=== PATIENT | female | born 1995 | race Caucasian/White ===

== ENCOUNTER 2019-08-21 08:13 | Emergency (ER) | payer OTHER ==
[~2019-08-21] VITALS: Ht 170.2 cm; Wt 81.6 kg
--- NOTE | 2019-08-21 08:17 | NUR ---
PT AMBULATED TO ER BED 02
[2019-08-21 08:21] VITALS: BP 136/71
--- NOTE | 2019-08-21 08:30 | NUR ---
PT C/O LEFT FLANK PAIN X 3 DAYS 12/17 ACCOMPANIED BY BLOOD SPOT X 1 DAY . PT AWAKE ,ALERT , AFEBRILE , AMBULATORY WITH STEADY GAIT. SCE ,CBS, NOT IN DISTRESS.DENIES N/V,EPISODES OF DIARRHEA NO CONSULT NOR MEDS TAKEN. DENIES PREVIOUS MEDICAL HISTORY AND MEDS TAKE.
--- NOTE | 2019-08-21 08:50 | NUR ---
DR SEGUNDO AT BEDSIDE EVALUATING PT.
[2019-08-21 09:54] LABS: BASOPHILS % (AUTO) 0.2 % (0.0-2.0); EOSINOPHILS # (AUTO) 0.2 K/uL (0-0.4); EOSINOPHILS % (AUTO) 1.7 % (0.0-4.0); HEMATOCRIT 35.3 % (36-48); HEMOGLOBIN 11.2 g/dL (12.0-16.0); LYMPHOCYTES # (AUTO) 2.2 K/uL (2.5-16.5); LYMPHOCYTES % (AUTO) 23.6 % (20.5-51.1); MEAN CORPUSCULAR HEMOGLOBIN 25 pg (27-31); MEAN CORPUSCULAR HGB CONC 32 g/dL (33-37); MEAN CORPUSCULAR VOLUME 78.1 fL (80-94); MONOCYTES # (AUTO) 0.8 K/uL (0.8-1.0); MONOCYTES % (AUTO) 8.3 % (1.7-9.3); NEUTROPHILS # (AUTO) 6.1 K/uL (1.8-7.7); NEUTROPHILS % (AUTO) 66.2 % (42.2-75.2); PLATELET COUNT (AUTO) 213 K/uL (140-450); RED BLOOD CELL COUNT(AUTO) 4.52 MIL/uL (4.20-5.40); RED CELL DISTRIBUTION WIDTH 17.1 % (11.6-13.7); WHITE BLOOD COUNT (AUTO) 9.3 K/uL (4.8-10.8)
[2019-08-21 09:58] LABS: APPEARANCE,URINE HAZY (CLEAR); BILIRUBIN,URINE NEGATIVE (NEGATIVE); BLOOD, URINE 3+ (NEGATIVE); COLOR,URINE YELLOW (YELLOW); LEUKOCYTE ESTERASE ,URINE 2+ (NEGATIVE); NITRITE, URINE NEGATIVE (NEGATIVE); UGLUCOSE NEGATIVE (NEGATIVE)
[2019-08-21 10:07] LABS: ANION GAP 11.3 (8-16); CARBON DIOXIDE 27.5 mmol/L (21-32); CREATININE 0.6 mg/dL (0.6-1.3); POTASSIUM 3.8 mmol/L (3.5-5.1)
--- NOTE | 2019-08-21 11:30 | NUR ---
Patient discharged with v/s stable. Written and verbal after care instructions given and explained regarding uti. Patient alert, oriented and verbalized understanding of instructions. Ambulatory with steady gait. All questions addressed prior to discharge. ID band removed. Patient advised to follow up with PMD. Rx of macrobid given. Patient educated on indication of medication including possible reaction and side effects. Opportunity to ask questions provided and answered.
[2019-08-21 11:33] VITALS: BP 136/71
== END 2019-08-21 11:30 | disposition home or self-care (01) ==
LOC: MED 08:13
DX: O23.41 Unspecified infection of urinary tract in pregnancy, first trimester (principal); F17.200 Nicotine dependence, unspecified, uncomplicated; Z3A.01 Less than 8 weeks gestation of pregnancy
CPT/HCPCS: 36415; 76801; 80048; 81001; 81025; 84702; 85025; 86900; 86901; 87086; 99284; Q0092

== ENCOUNTER 2021-09-10 17:59 | Emergency (ER) | payer OTHER ==
[~2021-09-10] VITALS: Ht 167.6 cm; Wt 94.8 kg
[2021-09-10 18:09] VITALS: BP 133/91
--- NOTE | 2021-09-10 18:11 | NUR ---
pt placed in bed 07 at this time
[2021-09-10] MEDS ORDERED: ACET-10509 PO (18:59)
[2021-09-10] MEDS ORDERED: LOPE-289 PO (18:59)
[2021-09-10] MEDS ORDERED: IBUP-2213 PO (18:59)
--- NOTE | 2021-09-10 19:13 | NUR ---
pt swabbed for covid novel at this time, sent to lab
--- NOTE | 2021-09-10 19:19 | NUR ---
Patient discharged with v/s stable. Written and verbal after care instructions given and explained. Patient alert, oriented and verbalized understanding of instructions. Ambulatory with grandma to car. All questions addressed prior to discharge. ID band removed. Patient advised to follow up with PMD. Rx of motrin, tylenol, imodium (sent) given. Patient educated on indication of medication including possible reaction and side effects. Opportunity to ask questions provided and answered. work note given
[2021-09-10 19:21] VITALS: BP 133/91
== END 2021-09-10 19:19 | disposition home or self-care (01) ==
LOC: MED 17:59
DX: M79.10 Myalgia, unspecified site (principal); R19.7 Diarrhea, unspecified; R63.0 Anorexia; R42 Dizziness and giddiness; Z20.822 Contact with and (suspected) exposure to COVID-19
CPT/HCPCS: 99283; U0003

== ENCOUNTER 2021-10-24 10:49 | Emergency (ER) | payer OTHER ==
[~2021-10-24] VITALS: Ht 170.2 cm; Wt 96.6 kg
[~2021-10-24 10:49] MED LIST: ACET-10509 PO; IBUP-2213 PO; LOPE-289 PO
[2021-10-24 10:56] VITALS: BP 143/79
--- NOTE | 2021-10-24 11:16 | NUR ---
25 y/o female came in for chest pain and left sided numbness. Patient states "numbness is left side of arm, legs and her neck. Patient describes 8/10 pain and a current headache. Patients chest pain started today. Left sided numbness started x 3 days ago. Medical history: asthma and gestational diabetes NKDA Addendum: 10/24/21 at 1337 by [email or web address] Patient discharged with information for muscle cramps and spasms and paresthesia v/s stable. Written and verbal after care instructions given. Patient alert, oriented and verbalized understanding of instructions. Ambulatory with steady gait. All questions addressed prior to discharge. ID band removed. Patient advised to follow up with PMD. Rx of naproxen given. Opportunity to ask questions provided and answered.
--- NOTE | 2021-10-24 11:21 | NUR ---
Dr. Razo at bedside evaluating patient.
[2021-10-24] MEDS ORDERED: diazePAM 5 MG TAB PO ONE (11:45)
[2021-10-24] MEDS ORDERED: KETOROLAC 30 MG/ML VIAL IM ONE (11:45)
--- NOTE | 2021-10-24 12:09 | NUR ---
BLOOD WORK COLLECTED AND DROPPED OFF AT LAB WITH AMBROSE JOHNSON
[2021-10-24 12:32] LABS: BASOPHILS # (AUTO) 0.1 K/uL (0.00-0.22); BASOPHILS % (AUTO) 0.6 % (0.0-2.0); EOSINOPHILS # (AUTO) 0.4 K/uL (0-0.4); EOSINOPHILS % (AUTO) 3.4 % (0.0-4.0); HEMATOCRIT 36.4 % (36-48); HEMOGLOBIN 11.7 g/dL (12.0-16.0); LYMPHOCYTES # (AUTO) 2.9 K/uL (2.5-16.5); LYMPHOCYTES % (AUTO) 25.2 % (20.5-51.1); MEAN CORPUSCULAR HEMOGLOBIN 26 pg (27-31); MEAN CORPUSCULAR HGB CONC 32 g/dL (33-37); MEAN CORPUSCULAR VOLUME 80.7 fL (80-94); MONOCYTES # (AUTO) 0.8 K/uL (0.8-1.0); MONOCYTES % (AUTO) 7.2 % (1.7-9.3); NEUTROPHILS # (AUTO) 7.2 K/uL (1.8-7.7); NEUTROPHILS % (AUTO) 63.6 % (42.2-75.2); PLATELET COUNT (AUTO) 231 K/uL (140-450); RED CELL DISTRIBUTION WIDTH 14.1 % (11.6-13.7); WHITE BLOOD COUNT (AUTO) 11.3 K/uL (4.8-10.8)
[2021-10-24 13:08] LABS: ANION GAP 15.5 (8-16); CARBON DIOXIDE 24.3 mmol/L (21-32); CREATININE 0.7 mg/dL (0.6-1.3); POTASSIUM 3.8 mmol/L (3.5-5.1)
[2021-10-24] MEDS ORDERED: NAPR-54 PO (13:15)
[2021-10-24 13:36] VITALS: BP 119/62
--- NOTE | 2021-10-24 13:36 | NUR ---
Patient discharged with v/s stable. Written and verbal after care instructions given. Patient alert, oriented and verbalized understanding of instructions. Ambulatory with steady gait. All questions addressed prior to discharge. ID band removed. Patient advised to follow up with PMD. Rx of Naproxen given Opportunity to ask questions provided and answered.
--- NOTE | 2021-10-24 13:36 | NUR ---
Chart checked and completed. The patient's care was reviewed and supervised by Pineda Nogueira RN.
== END 2021-10-24 13:36 | disposition home or self-care (01) ==
LOC: MED 10:49
DX: M79.10 Myalgia, unspecified site (principal); R20.2 Paresthesia of skin; J45.909 Unspecified asthma, uncomplicated; F17.200 Nicotine dependence, unspecified, uncomplicated; Z79.899 Other long term (current) drug therapy
CPT/HCPCS: 36415; 80048; 81002; 81025; 85025; 96372; 99283; J1885

== ENCOUNTER 2022-03-15 16:35 | Emergency (ER) | payer OTHER ==
[~2022-03-15] VITALS: Ht 167.6 cm; Wt 95.3 kg
[~2022-03-15 16:35] MED LIST changes: +NAPR-54 PO
[2022-03-15 17:03] VITALS: BP 115/69
--- NOTE | 2022-03-15 17:12 | NUR ---
PT AMBULATED WITH STEADY GAIT TO BATHROOM
--- NOTE | 2022-03-15 17:16 | NUR ---
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
--- NOTE | 2022-03-15 18:00 | NUR ---
PT AMBULATED TO OUTSIDE LOBBY WITH STEADY GAIT
--- NOTE | 2022-03-15 18:25 | NUR ---
SEEN BY DR SAENZ OUTSIDE
[2022-03-15] MEDS ORDERED: NACL 0.9% 1,000 ML IV ONE (18:40)
[2022-03-15] MEDS ORDERED: ACETAMINOPHEN EXTRA STRENGTH 500 MG TAB PO ONE (18:40)
--- NOTE | 2022-03-15 19:26 | NUR ---
called- no show in lobby or outside.
--- NOTE | 2022-03-15 19:44 | NUR ---
Called second time- no show in lobby or outside.
--- NOTE | 2022-03-15 19:56 | NUR ---
Patient left without D/C papers.
== END 2022-03-15 19:56 | disposition home or self-care (01) ==
LOC: MED 16:35
DX: O98.512 Other viral diseases complicating pregnancy, second trimester (principal); U07.1 COVID-19; Z3A.16 16 weeks gestation of pregnancy; J45.909 Unspecified asthma, uncomplicated
CPT/HCPCS: 81002; 81025; 99283